=== PATIENT | male | born 1965 | race Caucasian/White ===

== ENCOUNTER 2019-01-18 13:07 | Emergency (ER) | payer MEDICAID ==
[2019-01-18 13:09] VITALS: Wt 150.0 kg
[2019-01-18] MEDS ORDERED: RANEXA1000 MG PO (13:12)
[2019-01-18] MEDS ORDERED: ISOSORBIDE MONO60 M1 PO (13:12)
[2019-01-18] MEDS ORDERED: LOPRESSOR25 MG PO (13:13)
[2019-01-18] MEDS ORDERED: PLAVIX75 MG PO (13:13)
[2019-01-18] MEDS ORDERED: OMEPRAZOLE20 M1 (13:13)
[2019-01-18] MEDS ORDERED: BUPROPION XL150 MG PO (13:14)
[2019-01-18] MEDS ORDERED: PROTONIX40 MG PO (13:14)
[2019-01-18] MEDS ORDERED: URSO250 MG PO (13:14)
[2019-01-18 14:02] LABS: BASOPHILS 0.3 % (0-2); EOSINOPHILS 4.6 % (0-7); HEMATOCRIT 45.5 % (42.0-54.0); HEMOGLOBIN 14.8 g/dL (13.5-17.5); IMMATURE GRANULOCYTES 0.6 % (0-5); LYMPHOCYTES 23.9 % (15-50); MCH 32.5 pg (26.0-34.0); MCHC 32.5 g/dL (31.0-37.0); MEAN PLATELET VOLUME 10.7 fL (7.4-10.4); MONOCYTES 8.4 % (2-11); NEUTROPHILS 62.2 % (40-80); PLATELET COUNT 232 10x3/uL (130-400); RBC 4.55 10x6/uL (4.20-6.10); RDW 12.9 % (11.5-14.5); WBC 6.5 10x3/uL (4.8-10.8)
[2019-01-18 14:12] LABS: CALC OSMOLALITY 286 mosm/kg (275-300); CALCIUM 8.5 mg/dL (8.5-10.1); CHLORIDE - SERUM 108 mmol/L (98-107); CREATININE - SERUM 0.9 mg/dL (0.6-1.3); GLUCOSE 78 mg/dL (74-106); POTASSIUM - SERUM 4.3 mmol/L (3.5-5.1); SODIUM 143 mmol/L (136-145); UREA NITROGEN 22 mg/dL (7-18); eGFR NON AFRICAN AMERICAN > 90 mL/min (90-120)
[2019-01-18 14:17] LABS: ALBUMIN 3.5 g/dL (3.4-5.0); ALKALINE PHOSPHATASE 109 U/L (46-116); ALT (SGPT) 27 U/L (10-68); AMYLASE - SERUM 29 U/L (25-115); BILIRUBIN - TOTAL 0.29 mg/dL (0.2-1.3); LIPASE 88 U/L (73-393); PROTEIN - SERUM 6.9 g/dL (6.4-8.2)
[2019-01-18 15:26] LABS: APPEARANCE CLEAR (CLEAR); BILIRUBIN NEGATIVE (NEGATIVE); COLOR YELLOW (YELLOW); GLUCOSE NEGATIVE (NEGATIVE); KETONE NEGATIVE (NEGATIVE); NITRITE NEGATIVE (NEGATIVE); PROTEIN NEGATIVE (NEGATIVE); SPECIFIC GRAVITY 1.025 (1.005-1.020); UROBILINOGEN NORMAL (NORMAL)
[2019-01-18] MEDS ORDERED: ULTRAM50 MG PO (16:48)
[2019-01-18 17:31] VITALS: BP 115/68
== END 2019-01-18 17:32 | disposition home or self-care (01) ==
LOC: D.ER 13:07
PROVIDERS: Emergency Medicine
DX: R10.9 Unspecified abdominal pain (principal); I10 Essential (primary) hypertension